=== PATIENT | male | born 1950 ===

== ENCOUNTER 2018-02-16 10:59 | Inpatient (IN) | payer OTHER, MEDICAID ==
[~2018-02-16] VITALS: Ht 177.8 cm; Wt 104.8 kg
[2018-02-16 11:15] VITALS: Ht 177.8 cm; Wt 104.8 kg
[2018-02-16] MEDS ORDERED: ATORVASTATIN CA40 M1 PO (11:29)
[2018-02-16] MEDS ORDERED: ASPIRIN ADULT L81 M5 PO (11:29)
[2018-02-16] MEDS ORDERED: ALLOPURINOL300 M1 PO (11:29)
[2018-02-16] MEDS ORDERED: NOR5 PO (11:29)
[2018-02-16] MEDS ORDERED: BENAZEPRIL HYDR20 M1 PO (11:30)
[2018-02-16] MEDS ORDERED: HUMALOG100 U/ML SQ (11:32)
[2018-02-16] MEDS ORDERED: LANTUS SOLOS100 U/M1 SQ (11:32)
[2018-02-16 12:22] LABS: PLATELET COUNT 241 x10^3mcL (130-400)
[2018-02-16 12:33] LABS: CALCIUM 8.5 mg/dL (8.5-10.1); CARBON DIOXIDE 20.7 mmol/L (21-32); CREATININE SERUM 1.9 mg/dL (0.7-1.3); POTASSIUM SERUM 4.3 mmol/L (3.5-5.1)
[2018-02-16 13:01] LABS: BILIRUBIN TOTAL 0.49 mg/dL (0.20-1.00); T4(THYROXINE) 4.9 ug/dL (4.7-13.3); TOTAL PROTEIN, SERUM 7.3 g/dL (6.4-8.2)
[2018-02-16 14:03] LABS: microscopic required? YES; urine erythrocyte 1+ (NEGATIVE)
[2018-02-16 15:08] VITALS: BP 113/42
[2018-02-16 17:00] LABS: BAND NEUTROPHIL 13 % (0-10); BASOPHIL 0 % (0-2); METAMYELOCTE 1 % (0-2); MONOCYTE 6 % (0-7); MYELOCYTE 1 % (0-2); PLATELET MORPHOLOGY PLATELETS NORMAL; SEGMENTED NEUTROPHILS 69 % (37-75); rbc morphology (normal/abnorm) ABNORMAL (NORMAL)
[2018-02-16 20:57] VITALS: BP 142/62
[2018-02-17 05:45] VITALS: BP 109/39
[2018-02-17 06:56] LABS: BASOPHIL % 0.3 % (0-2); PLATELET COUNT 231 x10^3mcL (130-400)
[2018-02-17 07:00] LABS: RED CELL DISTRIBUTION WIDTH 15.5 % (11.5-14.5)
[2018-02-17 11:45] VITALS: BP 142/72
[2018-02-17 17:30] VITALS: BP 111/55
[2018-02-17 21:06] VITALS: BP 143/67
[2018-02-18 05:14] VITALS: BP 118/57
[2018-02-18 06:11] LABS: BASOPHIL % 0.3 % (0-2); PLATELET COUNT 236 x10^3mcL (130-400)
[2018-02-18 06:23] LABS: CALCIUM 8.3 mg/dL (8.5-10.1); CARBON DIOXIDE 20.2 mmol/L (21-32); CREATININE SERUM 1.8 mg/dL (0.7-1.3); POTASSIUM SERUM 4.6 mmol/L (3.5-5.1)
[2018-02-18 08:30] VITALS: BP 113/55
[2018-02-18 09:30] VITALS: BP 113/55
[2018-02-18 17:13] VITALS: BP 109/56
== END 2018-02-18 18:54 | disposition home or self-care (01) | DRG 255 ==
LOC: ED 10:59 → MU 14:09
PROVIDERS: Emergency Medicine; Internal Medicine
PROC: 0J9Q0ZZ Drainage of Right Foot Subcutaneous Tissue and Fascia, Open Approach (ICD-10-PCS; principal; 2018-02-16)
PROC: 0Y6P0Z1 Detachment at Right 1st Toe, High, Open Approach (ICD-10-PCS; 2018-02-17)
DX: E11.52 Type 2 diabetes mellitus with diabetic peripheral angiopathy with gangrene (principal); A48.0 Gas gangrene; L89.614 Pressure ulcer of right heel, stage 4; N18.4 Chronic kidney disease, stage 4 (severe); I45.2 Bifascicular block; E46 Unspecified protein-calorie malnutrition; L03.031 Cellulitis of right toe; I12.9 Hypertensive chronic kidney disease with stage 1 through stage 4 chronic kidney disease, or unspecified chronic kidney disease; E11.22 Type 2 diabetes mellitus with diabetic chronic kidney disease; E11.40 Type 2 diabetes mellitus with diabetic neuropathy, unspecified; E11.65 Type 2 diabetes mellitus with hyperglycemia; E78.00 Pure hypercholesterolemia, unspecified; Z79.4 Long term (current) use of insulin; Z68.33 Body mass index [BMI] 33.0-33.9, adult; F17.210 Nicotine dependence, cigarettes, uncomplicated
CPT/HCPCS: 82962; 90715; J0295; J1815; J1956; J2001; J2543; J2704; J3010; J3490; J7030; Q0092